=== PATIENT | male | born 1940 | race Caucasian/White ===

== ENCOUNTER 2017-07-10 13:24 | Emergency (ER) | payer MEDICARE ==
[2017-07-10] MEDS ORDERED: Adenosine* 3 MG/ML VIAL ONE (13:33)
[2017-07-10] MEDS ORDERED: Adenosine SYRINGE* 6 MG/2 ML IV PUSH ONE (13:35)
[2017-07-10 13:55] LABS: ABS Basophils 0.1 10^3/ul (0-0.2); ABS Eosinophils 0.2 10^3/ul (0-0.6); ABS Lymphocytes 1.2 10^3/ul (1.0-4.8); ABS Monocytes 0.5 10^3/ul (0-0.8); ABS Neutrophils 4.5 10^3/ul (1.5-7.7); ABS Nucleated RBC 0 10^3/ul; Eosinophil % 3.9 % (0-6); Hematocrit 41 % (42-52); Hemoglobin 13.7 g/dl (14.0-18.0); Mean Corpuscular HGB Conc 34 g/dl (31-36); Mean Corpuscular Hemoglobin 31 pg (27-31); Mean Corpuscular Volume 91 fL (80-94); Mean Platelet Volume 7.9 um3 (7.4-10.4); Nucleated Red Blood Cells % 0; Platelet Count 213 10^3/ul (150-450); Red Blood Count 4.45 10^6/ul (4.0-5.4); Red Cell Distribution Width 13 % (10.5-15); White Blood Count 6.4 10^3/ul (3.5-10.8)
[2017-07-10 14:04] LABS: INR 0.96 (0.77-1.02)
--- NOTE | 2017-07-10 14:10 | RAD ---
HISTORY: Shortness of breath COMPARISONS: June 05, 2014 VIEWS: 1: frontal portable view of the chest at 1:57 PM FINDINGS: LINES AND TUBES: None. CARDIOMEDIASTINAL SILHOUETTE: The cardiomediastinal silhouette is normal for portable technique. PLEURA: The costophrenic angles are sharp. No pleural abnormalities are noted. LUNG PARENCHYMA: The lungs are clear. ABDOMEN: The upper abdomen is clear. There is no subphrenic gas. BONES AND SOFT TISSUES: No bone or soft tissue abnormalities are noted. IMPRESSION: NO ACTIVE CARDIOPULMONARY DISEASE.
[2017-07-10 14:13] LABS: EGFR Non-African American 60.2 (>60)
[2017-07-10 14:35] LABS: Urine Appearance Clear; Urine Blood 1+ (Negative); Urine Color Straw; Urine Ketones Trace (Negative); Urine Protein Negative (Negative); Urine Specific Gravity 1.004 (1.010-1.030); Urine Urobilinogen Negative (Negative)
[2017-07-10 15:36] VITALS: BP 116/72
--- NOTE | 2017-07-10 15:38 | ED ---
Adrien Juan Stephanie, scribed for Francisco J Tao on 07/10/17 at 1338 . Dizziness - HPI Summary HPI Summary: The pt is a 76 y/o M presenting to the ED with c/o dizziness that began at 12: 45 today. Symptoms include rapid HR and diaphoresis. The pt states he may have been overworking himself. - History Of Current Complaint Stated Complaint: RAPID HR Time Seen by Provider: 07/10/17 13:34 Hx Obtained From: Patient Onset/Duration: Still Present, Suddenly Timing: Constant Severity Currently: Moderate Character: Dizzy Aggravating Factor(s): Nothing Alleviating Factor(s): Nothing Associated Signs And Symptoms: Positive: Diaphoresis, Other: - rapid HR - Allergies/Home Medications Allergies/Adverse Reactions: Allergies Allergy/AdvReac Type Severity Reaction Status Date / Time bee venom protein (honey bee) Allergy Difficulty Verified 07/10/17 14:01 Breathing/Wheezing clotrimazole Allergy Difficulty Verified 07/10/17 14:01 [From Lotrimin AF Breathing/Wheezing (clotrimazole)] hydrocortisone Allergy Rash Verified 07/10/17 14:01 lactose Allergy Stomach Verified 07/10/17 14:01 Cramps latex Allergy Rash Verified 07/10/17 14:01 simvastatin [From Zocor] Allergy Muscle Ache Verified 07/10/17 14:01 Home Medications: Home Medications Lovastatin(NF) [Mevacor(NF)] 20 mg PO DAILY 07/10/17 [History Confirmed 07/10/17 ] PMH/Surg Hx/FS Hx/Imm Hx Endocrine/Hematology History: Denies: Hx Diabetes Cardiovascular History: Reports: Hx Angina, Hx Coronary Artery Disease, Hx Hypercholesterolemia, Hx Hypertension - IN THE PAST Denies: Other Cardiovascular Problems/Disorders Respiratory History: Denies: Hx Asthma, Other Respiratory Problems/Disorders GI History: Denies: Other GI Disorders Musculoskeletal History: Denies: Other Musculoskeletal History Sensory History: Reports: Hx Cataracts - SABRINA, Hx Contacts or Glasses - GLASSES, Hx Hearing Aid - SABRINA Opthamlomology History: Reports: Hx Cataracts - SABRINA, Hx Contacts or Glasses - GLASSES Neurological History: Denies: Other Neuro Impairments/Disorders - Surgical History Surgery Procedure, Year, and Place: HERNIA REPAIR, 25 YRS AGO, [facility]. VASECTOMY 33 YRS AGO Hx Anesthesia Reactions: No - Family History Known Family History: Negative: Renal Disease - Social History Occupation: Retired Lives: With Family Alcohol Use: None Alcohol Amount: 1-2 PER DAY Substance Use Type: Reports: None Smoking Status (MU): Former Smoker Type: Cigarettes Amount Used/How Often: 1-2 PACKS A DAY Have You Smoked in the Last Year: No Review of Systems Positive: Skin Diaphoresis. Negative: Fever Positive: Other - rapid HR Neurological: Other - dizziness All Other Systems Reviewed And Are Negative: Yes Physical Exam - Summary Physical Exam Summary: Appearance: Well appearing, no pain distress Skin: warm, dry, reflects adequate perfusion Head/face: normal Eyes: EOMI, SERGE ENT: normal Neck: supple, non-tender Respiratory: CTA, breath sounds present Cardiovascular: Tachycardic, regular rhythm, pulses symmetrical Abdomen: non-tender, soft Bowel: present Musculoskeletal: normal, strength/ROM intact Neuro: normal, sensory motor intact, A&Ox3 Triage Information Reviewed: Yes Vital Signs On Initial Exam: Initial Vitals Resp 16 07/10/17 13:31 Vital Signs Reviewed: Yes Diagnostics - Vital Signs Vital Signs Temp Pulse Resp BP Pulse Ox 07/10/17 15:26 77 116/72 98 07/10/17 15:00 73 99 07/10/17 14:56 81 16 125/79 99 07/10/17 14:00 91 15 97 07/10/17 13:48 99 07/10/17 13:39 97.6 F 168 20 140/107 99 07/10/17 13:38 98 13 151/86 98 07/10/17 13:36 107 18 120/100 98 07/10/17 13:32 163 15 140/107 98 07/10/17 13:31 16 - Laboratory Lab Results: Lab Results 07/10/17 07/10/17 07/10/17 Range/Units 13:46 13:46 13:46 WBC 6.4 (3.5-10.8) 10^3/ul RBC 4.45 (4.0-5.4) 10^6/ul Hgb 13.7 L (14.0-18.0) g/dl Hct 41 L (42-52) % MCV 91 (80-94) fL MCH 31 (27-31) pg MCHC 34 (31-36) g/dl RDW 13 (10.5-15) % Plt Count 213 (150-450) 10^3/ul MPV 7.9 (7.4-10.4) um3 Neut % (Auto) 69.2 (38-83) % Lymph % (Auto) 18.0 L (25-47) % [place] % (Auto) 7.9 H (0-7) % Eos % (Auto) 3.9 (0-6) % Baso % (Auto) 1.0 (0-2) % Absolute Neuts (auto) 4.5 (1.5-7.7) 10^3/ul Absolute Lymphs (auto) 1.2 (1.0-4.8) 10^3/ul Absolute Monos (auto) 0.5 (0-0.8) 10^3/ul Absolute Eos (auto) 0.2 (0-0.6) 10^3/ul Absolute Basos (auto) 0.1 (0-0.2) 10^3/ul Absolute Nucleated RBC 0 10^3/ul Nucleated RBC % 0 INR (Anticoag Therapy) 0.96 (0.77-1.02) APTT 37.9 H (26.0-36.3) seconds Sodium 136 L (139-145) mmol/L Potassium 3.7 (3.5-5.0) mmol/L Chloride 101 (101-111) mmol/L Carbon Dioxide 26 (22-32) mmol/L Anion Gap 9 (2-11) mmol/L BUN 18 (6-24) mg/dL Creatinine 1.18 H (0.67-1.17) mg/dL Est GFR ( Amer) 77.4 (>60) Est GFR (Non-Af Amer) 60.2 (>60) BUN/Creatinine Ratio 15.3 (8-20) Glucose 153 H (70-100) mg/dL Lactic Acid (0.5-2.0) mmol/L Calcium 8.8 (8.6-10.3) mg/dL Magnesium 2.0 (1.9-2.7) mg/dL Total Bilirubin 0.70 (0.2-1.0) mg/dL AST 17 (13-39) U/L ALT 9 (7-52) U/L Alkaline Phosphatase 47 (34-104) U/L Troponin I 0.00 (<0.04) ng/mL B-Natriuretic Peptide ( - 100) pg/mL Total Protein 6.4 (6.4-8.9) g/dL Albumin 4.0 (3.2-5.2) g/dL Globulin 2.4 (2-4) g/dL Albumin/Globulin Ratio 1.7 (1-3) TSH 3.38 (0.34-5.60) mcIU/mL Urine Color Urine Appearance Urine pH (5-9) Ur Specific [place] (1.010-1.030) Urine Protein (Negative) Urine Ketones (Negative) Urine Blood (Negative) Urine Nitrate (Negative) Urine Bilirubin (Negative) Urine Urobilinogen (Negative) Ur Leukocyte Esterase (Negative) Urine WBC (Auto) (Absent) Urine RBC (Auto) (Absent) Urine Bacteria (Absent) Urine Glucose (Negative) 07/10/17 07/10/17 07/10/17 Range/Units 13:46 13:46 14:19 WBC (3.5-10.8) 10^3/ul RBC (4.0-5.4) 10^6/ul Hgb (14.0-18.0) g/dl Hct (42-52) % MCV (80-94) fL MCH (27-31) pg MCHC (31-36) g/dl RDW (10.5-15) % Plt Count (150-450) 10^3/ul MPV (7.4-10.4) um3 Neut % (Auto) (38-83) % Lymph % (Auto) (25-47) % [place] % (Auto) (0-7) % Eos % (Auto) (0-6) % Baso % (Auto) (0-2) % Absolute Neuts (auto) (1.5-7.7) 10^3/ul Absolute Lymphs (auto) (1.0-4.8) 10^3/ul Absolute Monos (auto) (0-0.8) 10^3/ul Absolute Eos (auto) (0-0.6) 10^3/ul Absolute Basos (auto) (0-0.2) 10^3/ul Absolute Nucleated RBC 10^3/ul Nucleated RBC % INR (Anticoag Therapy) (0.77-1.02) APTT (26.0-36.3) seconds Sodium (139-145) mmol/L Potassium (3.5-5.0) mmol/L Chloride (101-111) mmol/L Carbon Dioxide (22-32) mmol/L Anion Gap (2-11) mmol/L BUN (6-24) mg/dL Creatinine (0.67-1.17) mg/dL Est GFR ( Amer) (>60) Est GFR (Non-Af Amer) (>60) BUN/Creatinine Ratio (8-20) Glucose (70-100) mg/dL Lactic Acid 1.1 (0.5-2.0) mmol/L Calcium (8.6-10.3) mg/dL Magnesium (1.9-2.7) mg/dL Total Bilirubin (0.2-1.0) mg/dL AST (13-39) U/L ALT (7-52) U/L Alkaline Phosphatase (34-104) U/L Troponin I (<0.04) ng/mL B-Natriuretic Peptide 24 ( - 100) pg/mL Total Protein (6.4-8.9) g/dL Albumin (3.2-5.2) g/dL Globulin (2-4) g/dL Albumin/Globulin Ratio (1-3) TSH (0.34-5.60) mcIU/mL Urine Color Straw Urine Appearance Clear Urine pH 7.0 (5-9) Ur Specific [place] 1.004 L (1.010-1.030) Urine Protein Negative (Negative) Urine Ketones Trace A (Negative) Urine Blood 1+ A (Negative) Urine Nitrate Negative (Negative) Urine Bilirubin Negative (Negative) Urine Urobilinogen Negative (Negative) Ur Leukocyte Esterase Negative (Negative) Urine WBC (Auto) Trace(0-5/hpf) (Absent) Urine RBC (Auto) Trace(0-2/hpf) (Absent) Urine Bacteria Absent (Absent) Urine Glucose Negative (Negative) Result Diagrams: 07/10/17 13:46 07/10/17 13:46 Lab Statement: Any lab studies that have been ordered have been reviewed, and results considered in the medical decision making process. - Radiology CXR Xray Interpretation: No Acute Changes Radiology Interpretation Completed By: Radiologist - NO ACTIVE CARDIOPULMONARY DISEASE. ED physician has reviewed this report. - EKG 13:30 Cardiac Rate: Tachycardia - 153 BPM EKG Rhythm: PSVT 13:35 Cardiac Rate: NL EKG Rhythm: Sinus Rhythm - [address] Segment: Normal Ectopy: None Dizzy Course/Dx - Course Course Of Treatment: The pt is a 76 y/o M presenting to the ED with c/o dizziness that began at 12:45 today. Symptoms include rapid HR and diaphoresis. Labs and urines obtained. CXR and EKGs show no acute disease. - Diagnoses Differential Diagnosis/HQI/PQRI: Anxiety, Coronary Artery Disease, Dysrhythmia, Other - psvt Provider Diagnoses: PSVT (paroxysmal supraventricular tachycardia) - Provider Notifications Discussed Care Of Patient With: Jeromy Fernández - Advised atenolol and then discharge. Time Discussed With Above Provider: 15:26 - Critical Care Time Critical Care Time: 30-74 min Discharge - Sign-Out/Discharge Documenting (check all that apply): Discharge/Admit/Transfer - Discharge - Discharge Plan Condition: Stable Disposition: HOME Prescriptions: Atenolol TAB* [Tenormin TAB* 25 MG] 25 mg PO DAILY #30 tab Patient Education Materials: Supraventricular Tachycardia (ED) Referrals: Savana Gonzalez MD [Medical Doctor] - 3 Days Additional Instructions: Return to the ED for new or worsening symptoms. - Billing Disposition and Condition Condition: STABLE Disposition: HOME The documentation as recorded by the Adrien dueñas Stephanie accurately reflects the service I personally performed and the decisions made by Aislinn vaca Emmanuel.
== END 2017-07-10 15:40 | disposition home or self-care (01) ==
LOC: ED 13:24
DX: I47.1 Supraventricular tachycardia (principal); Z87.891 Personal history of nicotine dependence; Z88.8 Allergy status to other drugs, medicaments and biological substances
CPT/HCPCS: 36415; 71045; 80053; 81003; 81015; 83605; 83735; 83880; 84443; 84484; 85025; 85610; 85730; 87086; 93005; 96374; 99284; J0153

== ENCOUNTER 2018-11-12 11:34 | Emergency (ER) | payer MEDICARE ==
--- OUTSIDE RECORDS SUMMARY | 2018-11-12 11:39 | XMS REPORT | Continuity of Care Document ---
:1940 External Reference #:[id number] Author Name Oralia Holt NP Address [address] [place] [address] Care Team Providers Name Role Phone Abimbola Simmons FNP - Care Team Information Senior Core Java Developer [phone] [facility] Physical Care Team Information Senior Core Java Developer Therapy - Physical Therapy Problems Active Problems Provider Date Arthralgia of the ankle and/or foot Gustavo Johnson M.D. Onset: 02/03/2011 Bite of nonvenomous arthropod Jonathan Looney M.D. Onset: 05/21/2011 Disorder of skin and/or subcutaneous tissue Jonathan Looney M.D. Onset: 08/2011 Backache Gustavo Johnson M.D. Onset: 01/11/2012 Adult health examination Gustavo Johnson M.D. Onset: 08/17/2012 Essential hypertension Gustavo Johnson M.D. Onset: 08/17/2012 Benign localized hyperplasia of prostate Gustavo Johnson M.D. Onset: 08/17 Disorder of shoulder Gustavo Johnson M.D. Onset: 09/18/2013 Hyperlipidemia Gustavo Johnson M.D. Onset: 05/16/2014 Low back pain Gustavo Johnson M.D. Onset: 06/15/2016 Shoulder joint pain Gustavo Johnson M.D. Onset: 09/25/2016 Eruption Gustavo Johnson M.D. Onset: 09/25/2016 Paroxysmal tachycardia Gustavo Johnson M.D. Onset: 09/25/2016 Social History Type Date Description Comments Sex Unknown Tobacco Use Start: Unknown End: Former Cigarette Smoker smoker for 35 years, Unknown quit 5 years ago Smoking Status Reviewed: 04/21/18 Former Cigarette Smoker smoker for 35 years, quit 5 years ago Tobacco Use Start: Unknown Nonsmoker Allergies, Adverse Reactions, Alerts Active Allergies Reaction Severity Comments Date Lotrimin 10/31/1997 Bee Sting 09/14/2007 Latex sensitivity 05/21/2011 Metoprolol Urticaria 10/01/2016 Medications Active Medications SIG Qnty Indications Ordering Provider Date Epipen 2-Manny use as directed 1units Gustavo Song 08/24/2018 Lee Johnson 0.3mg/0.3ML Solution Auto-Inject Benadryl Allergy one PO qd as 60caps Gustavo Song 09/25/2016 25mg needed Lee Johnson Capsules Lovastatin 1 by mouth every Unknown 20mg Tablets day Tumeric 150MG 4 tabs qd Unknown History Medications Gentamicin Sulfate 2 qtts in the 5ml Suzanne Parker [facility] 10/06/2018 - 0.3% left eye bid x 10/14/2018 Solution 5d Amoxicillin 1 by mouth 20tabs J06.9 Suzanne Parker [facility] 04/21/2018 - 500mg twice a day x10 08/24/2018 Tablets days Prednisone 5 time first 15tabs J06.9 Suzanne Parker [facility] 04/21/2018 - 10mg Tablets day reduce by 1 08/24/2018 pill per day until gone Medications Administered in Office Medication SIG Qnty Indications Ordering Provider Date Injection Subcutaneous Or Gustavo Johnson M.D. 04/01/2017 Intramuscular Injection Immunization Admin By Gustavo Johnson M.D. 12/01/2006 Intranasal Or Oral Route: One Vaccine Injection Immunizations CPT Code Status Date Vaccine Lot # [id number] Given 11/08/2017 High-Dose, Influenza Virus Vacccine-fluzone 65 and older [id number] Given 04/01/2017 Hep A Adlt Immunization [id number] 32496 Given 12/03/2016 High-Dose, Influenza Virus Vacccine-fluzone 65 and older [id number] Given 01/13/2016 Hep A Adlt Immunization [id number] 64177 Given 08/27/2015 Tdap Tetanus, W Pertussis [id number] 49666 Given 11/13/2014 Influenza Vac, Quadrivalent, Slit Virus, Im [id number] Given 11/13/2014 Pneumococcal Conjugate Vacc-13 [id number] 37925 Given 12/04/2013 DO Not Use Split Influenza Virus Vaccine [id number] Given 11/29/2012 DO Not Use Split Influenza Virus Vaccine [id number] Given 11/11/2011 DO Not Use Split Influenza Virus Vaccine 95550 Given 05/19/2010 Zostivax [id number] 45598 Given 11/30/2009 DO Not Use Split Influenza Virus Vaccine [id number] 16149 Given 12/01/2007 DO Not Use Split Influenza Virus Vaccine [id number] 26112 Given 12/01/2006 Pneumococcal Immunization [id number] 80056 Given 12/01/2006 Tetanus And Diptheria Adult Preservative Free [id number] >[id number] 25994 Given 12/01/2006 DO Not Use Split Influenza Virus Vaccine [id number] 94297 Given 01/02/2003 DO Not Use Split Influenza Virus Vaccine 61844 Given 01/02/2003 DO Not Use Split Influenza Virus Vaccine [id number] Given 01/26/2001 Influenza Immunization Vital Signs Date Vital Result Comment 10/14/2018 1:11pm BP Systolic 122 mmHg BP Diastolic 82 mmHg Heart Rate 66 /min Body Temperature 97.5 F Height 64.5 inches 5'4.50" 10/06/2018 1:45pm BP Systolic 136 mmHg BP Diastolic 62 mmHg Heart Rate 60 /min Body Temperature 98.6 F Height 64.5 inches 5'4.50" Weight 159.00 lb BMI (Body Mass Index) 26.9 kg/m2 Results Test Date Facility Test Result H/L Range Note Lipid Profile 08/16/2018 [facility] [place]ig[place]ides 51 mg/dL 1 (Trig/Chol/HDL) Cholesterol 139 mg/dL 2 HDL Cholesterol 56.8 mg/dL 3 LDL Cholesterol 72 mg/dL 4 Laboratory test finding 08/16/2018 [facility] [place] (Sgot) 18 U/L Normal 13-39 1 Desirable: <150 Borderline High: 150-199 High: 200-499 Very High: >500 2 Desirable: <200 Borderline High: 200-239 High: >239 3 Low: <40 Desirable: 40-60 High: >60 4 Desirable: <100 Near Optimal: 100-129 Borderline High: 130-159 High: 160-189 Very High: >189 Procedures Date Code Description Status 04/21/2018 92523 Pulse Oximetry Completed 11/07/2008 51307818 Colonoscopy Completed Medical Devices Description No Information Available Encounters Type Date Location Provider Dx Diagnosis Office Visit 10/06/2018 [facility] Suzanne Parker, H00.015 Hordeolum externum 1:45p [employer]LECT[employer]OL[employer] left lower eyelid Office Visit 08/24/2018 [facility] Gustavo Song M25.511 Pain in right 11:10a Lee Johnson shoulder Office Visit 04/21/2018 [facility] Suzanne Parker, J06.9 Acute upper 10:45a [employer] respiratory infection, unspecified Assessments Date Code Description Provider 10/14/2018 H00.015 Hordeolum externum left lower eyelid Oralia Holt, PAULA 10/06/2018 H00.015 Hordeolum externum left lower eyelid Suzanne Arorarer, ELECT[employer]ATER 08/24/2018 M25.511 Pain in right shoulder Gustavo Johnson M.D. 04/21/2018 J06.9 Acute upper respiratory infection, Suzanne Keith, [employer]LECT[employer]ESS PLATER unspecified Plan of Treatment 10/14/2018 - Oralia Holt, NPH00.015 Hordeolum externum left lower eyelidComments:The fact that your pain and the abscess have gone down mean you are improving. I do expect the swelling to improve over time; if it doesn't go away within the next 2 months, let me know and I can send you to an social insurance analyst.AllComments:1. Patient has been queried about patient's goals/ preferences and functional/lifestyle goals at relevant visits. If relevant, describe: Has been discussed, noted above2. Treatment goals as explainedto the patient: see above3. Are there barriers to meeting treatment goals? Yes If Yes, please describe: Barriers include possible insurance limits, disease process, and difficulty with lifestyle changes4. Self-Management goals as described to the patient: Yes, see above As always, we strongly encourage a healthy diet and making physical activity a part of your every day life. If you have questions about how or where to start, please contact the office. Functional Status Description No Information Available Mental Status Description No Information Available Referrals Description No Information Available
--- NOTE | 2018-11-12 12:32 | UC ---
HPI Febrile Illness - HPI Summary HPI Summary: body aches and fever began yesterday slight nausea-no vomiting this morning awoke with temperature of 103.5 that responded well to Tylenol, was able to eat breakfast this morning---no illness exposure, uri or uti sx no diarrhea--- patient reports a tick bit about 2 months ago---he is unsure how long it was attached for---has developed no rash - History of Current Complaint Chief Complaint: UCGeneralIllness Time Seen by Provider: 11/12/18 12:12 Hx Obtained From: Patient Onset/Duration: Started Hours Ago - 1 Timing: Constant Temperature: 103.5 F - tmax this am Pain Intensity: 1 Pain Scale Used: 0-10 Numeric Aggravating Factors: Nothing Alleviating Factors: OTC Medicine Associated Signs and Symptoms: Arthralgia, Myalgia, Nausea Related History: Recent Tick Bite - Allergy/Home Medications Allergies/Adverse Reactions: Allergies Allergy/AdvReac Type Severity Reaction Status Date / Time bee venom protein (honey bee) Allergy Difficulty Verified 11/12/18 11:58 Breathing/Wheezing clotrimazole Allergy Difficulty Verified 11/12/18 11:58 [From Lotrimin AF Breathing/Wheezing (clotrimazole)] hydrocortisone Allergy Rash Verified 11/12/18 11:58 lactose Allergy Stomach Verified 11/12/18 11:58 Cramps latex Allergy Rash Verified 11/12/18 11:58 simvastatin [From Zocor] AdvReac Muscle Ache Verified 11/12/18 11:58 Home Medications: Home Medications Acetaminophen TAB* [Tylenol TAB*] 500 mg PO ONCE PRN 11/12/18 [History Confirmed 11/12/18] PMH/Surg Hx/FS Hx/Imm Hx Previously Healthy: No Endocrine History: Dyslipidemia - Surgical History Surgical History: Yes Surgery Procedure, Year, and Place: HERNIA REPAIR, 25 YRS AGO, [facility]. VASECTOMY 33 YRS AGO - Family History Known Family History: Negative: Renal Disease - Social History Occupation: Retired Lives: With Family Alcohol Use: None Alcohol Amount: 1-2 PER DAY Substance Use Type: None Smoking Status (MU): Former Smoker Type: Cigarettes Amount Used/How Often: 1-2 PACKS A DAY Have You Smoked in the Last Year: No When Did the Patient Quit Smoking/Using Tobacco: 40 years ago Review of Systems All Other Systems Reviewed And Are Negative: Yes Constitutional: Positive: Fever Skin: Positive: Negative Eyes: Positive: Negative ENT: Positive: Negative Respiratory: Positive: Negative Cardiovascular: Positive: Negative Gastrointestinal: Positive: Nausea Genitourinary: Positive: Negative Motor: Positive: Negative Neurovascular: Positive: Negative Musculoskeletal: Positive: Arthralgia, Myalgia Neurological: Positive: Negative Psychological: Positive: Negative Is Patient Immunocompromised?: No Physical Exam Triage Information Reviewed: Yes Appearance: Well-Appearing, No Pain Distress, Well-Nourished Vital Signs: Initial Vital Signs Temp 99.1 F 11/12/18 11:54 Pulse 94 11/12/18 11:54 Resp 18 11/12/18 11:54 BP 108/61 11/12/18 11:54 Pulse Ox 96 11/12/18 11:54 Vital Signs Reviewed: Yes Eye Exam: Normal Eyes: Positive: Conjunctiva Clear ENT Exam: Normal ENT: Positive: Normal ENT inspection, Hearing grossly normal, Pharynx normal, TMs normal, Uvula midline. Negative: Nasal congestion, Tonsillar swelling, Trismus, Muffled voice, Hoarse voice, Dental tenderness, Sinus tenderness Dental Exam: Normal Neck exam: Normal Neck: Positive: Supple, Nontender, No Lymphadenopathy Respiratory Exam: Normal Respiratory: Positive: Chest non-tender, Lungs clear, Normal breath sounds, No respiratory distress, No accessory muscle use Cardiovascular Exam: Normal Cardiovascular: Positive: RRR, No Murmur, Pulses Normal, Brisk Capillary Refill Abdominal Exam: Normal Abdomen Description: Positive: Nontender, No Organomegaly, Soft. Negative: CVA Tenderness (R), CVA Tenderness (L), Distended, Guarding, McBurney's Point Tenderness Bowel Sounds: Positive: Present Musculoskeletal Exam: Normal Musculoskeletal: Positive: Strength Intact, ROM Intact, No Edema Neurological Exam: Normal Neurological: Positive: Alert, Muscle Tone Normal Psychological Exam: Normal Skin Exam: Normal Diagnostics - Laboratory Lab Results: rst -, influenza a/b-, ua +for blood, ( patient reports this is new) Course/Dx - Course Course Of Treatment: tylenol for pain/fever, labs, follow with Dr. Johnson this week to ed should symptoms worsen - Diagnoses Provider Diagnosis: Hematuria, Lyme disease Discharge ED - Sign-Out/Discharge Documenting (check all that apply): Patient Departure All imaging exams completed and their final reports reviewed: No Studies - Discharge Plan Condition: Stable Disposition: HOME Prescriptions: DOXYcycline CAP(*) [DOXYcycline 100MG CAP(*)] 100 mg PO BID #28 cap Patient Education Materials: Lyme Disease (ED), Tick Bite (ED), Hematuria (ED) Referrals: Gustavo Johnson MD [Primary Care Provider] - 3 Days - Billing Disposition and Condition Condition: STABLE Disposition: Home - Attestation Statements Provider Attestation: I was available for consult. This patient was seen by the JULIO. The patient was not presented to, seen by, or examined by me. Cristian Antoine MD
[2018-11-12 12:36] LABS: Influenza A Molecular NEGATIVE (Negative); Influenza B Molecular NEGATIVE (Negative)
[2018-11-12] MEDS ORDERED: Acetaminophen TAB* 325 MG PO ONE (13:29)
[2018-11-12 13:36] VITALS: BP 137/69
--- NOTE | 2018-11-12 13:36 | UC ---
- Progress Note Progress Note: patient c/o shaking chills after blood was drown temperature 99.6 (but feels warmer)---tylenol given rechecked at 1410---chills resolved, --will d/c to home with close follow up and go to ED if symptoms worsen Course/Dx - Diagnoses Provider Diagnoses: Hematuria, Lyme disease Discharge ED - Sign-Out/Discharge Documenting (check all that apply): Post-Discharge Follow Up All imaging exams completed and their final reports reviewed: No Studies - Discharge Plan Condition: Stable Disposition: HOME Prescriptions: DOXYcycline CAP(*) [DOXYcycline 100MG CAP(*)] 100 mg PO BID #28 cap Patient Education Materials: Lyme Disease (ED), Tick Bite (ED), Hematuria (ED) Referrals: Gustavo Johnson MD [Primary Care Provider] - 3 Days - Billing Disposition and Condition Condition: STABLE Disposition: Home - Attestation Statements Provider Attestation: I was available for consult. This patient was seen by the JULIO. The patient was not presented to, seen by, or examined by me. Cristian Antoine MD
[2018-11-12 15:37] LABS: ABS Lymphocytes 0.1 10^3/ul (1.0-4.8); ABS Monocytes 0.1 10^3/ul (0-0.8); ABS Neutrophils 5.4 10^3/ul (1.5-7.7); Hematocrit 44 % (42-52); Hemoglobin 15.2 g/dL (14.0-18.0); Lymphocyte % 2.6 %; Mean Corpuscular HGB Conc 34 g/dL (31-36); Mean Corpuscular Hemoglobin 31 pg (27-31); Mean Corpuscular Volume 91 fL (80-94); Mean Platelet Volume 8.5 fL (7.4-10.4); Nucleated Red Blood Cells % 0.1; Platelet Count 172 10^3/uL (150-450); Red Blood Count 4.82 10^6 /uL (4.18-5.48); Red Cell Distribution Width 14 % (10-15); White Blood Count 5.6 10^3/uL (3.5-10.8)
[2018-11-12 16:50] LABS: Albumin 4.3 g/dL (3.2-5.2); Calcium 8.7 mg/dL (8.6-10.3); Total Bilirubin 0.8 mg/dL (0.2-1.0)
[2018-11-12 16:56] LABS: BUN/Creatinine Ratio 17.3 (8-20); EGFR African American 78.5 (>60); EGFR Non-African American 64.9 (>60); Globulin 2.1 g/dL (2-4); Total Protein 6.4 g/dL (6.4-8.9)
--- NOTE | 2018-11-13 14:51 | UC ---
- Progress Note Progress Note: Seen for fever. Lab returns with no elevated white count. Glucose elevated at 146. Mild hyponatremia or linked to elevated glucose. Plan: Call patient to check on condition. Patient needs follow up with PMD and recheck of glucose. Manjeet Kelly MD Course/Dx - Diagnoses Provider Diagnoses: Hematuria, Lyme disease Discharge ED - Sign-Out/Discharge Documenting (check all that apply): Post-Discharge Follow Up All imaging exams completed and their final reports reviewed: No Studies - Discharge Plan Condition: Stable Disposition: HOME Prescriptions: DOXYcycline CAP(*) [DOXYcycline 100MG CAP(*)] 100 mg PO BID #28 cap Patient Education Materials: Lyme Disease (ED), Tick Bite (ED), Hematuria (ED) Referrals: Gustavo Johnson MD [Primary Care Provider] - 3 Days - Billing Disposition and Condition Condition: STABLE Disposition: Home
== END 2018-11-12 13:22 | disposition home or self-care (01) ==
LOC: UCEAST 11:34
DX: R31.9 Hematuria, unspecified (principal); A69.20 Lyme disease, unspecified; R50.9 Fever, unspecified; R11.0 Nausea; Z88.8 Allergy status to other drugs, medicaments and biological substances; Z91.030 Bee allergy status; Z91.040 Latex allergy status; Z91.011 Allergy to milk products; Z87.891 Personal history of nicotine dependence
CPT/HCPCS: 36415; 80053; 81003; 85025; 86618; 87651; 99212; A9270-GY; G0463